=== PATIENT | female | born 1930 | race Hispanic/Latino ===

== ENCOUNTER 2017-10-11 13:59 | Outpatient (CLI) | payer MEDICARE ==
--- NOTE | 2017-10-11 14:42 | XRay Report ---
Chest 2 views. Findings: The heart and pulmonary vessels are normal. The lungs are free of acute infiltrates or congestive changes. No pleural fluid is seen. Minimal parenchymal scarring is seen in the left lung base. Impression: No acute findings.
== END 2017-10-11 14:00 | disposition home or self-care (01) ==
LOC: SPVIMAG 13:59
PROVIDERS: ATTEND Internal Medicine
DX: J20.9 Acute bronchitis, unspecified (principal); J98.4 Other disorders of lung
CPT/HCPCS: 71020